=== PATIENT | male | born 1965 | race Caucasian/White ===

== ENCOUNTER → 2020-07-24 10:34 | Outpatient (BNVA) | payer OTHER, SELFPAY | PROVIDERS: Referring Provider Family Medicine; Visit Provider Anesthesiology Pain Medicine | DX: M25.551 Pain in right hip (principal); M25.552 Pain in left hip; M25.561 Pain in right knee; M25.562 Pain in left knee; M25.571 Pain in right ankle and joints of right foot; M25.572 Pain in left ankle and joints of left foot; Z79.891 Long term (current) use of opiate analgesic | CPT/HCPCS: 99205; 99215 ==

== ENCOUNTER → 2020-12-16 13:00 | Outpatient (BNVA) | payer OTHER, SELFPAY | PROVIDERS: PCP Family Medicine; Visit Provider Surgery | DX: K21.9 Gastro-esophageal reflux disease without esophagitis (principal); Z20.822 Contact with and (suspected) exposure to COVID-19 | CPT/HCPCS: 87635 ==

== ENCOUNTER → 2021-05-26 16:22 | Outpatient (BNVA) | payer OTHER, SELFPAY | PROVIDERS: PCP Family Medicine; Visit Provider Nurse Practitioner Family | DX: Z20.822 Contact with and (suspected) exposure to COVID-19 (principal) | CPT/HCPCS: 87635 ==

== ENCOUNTER → 2021-09-29 13:15 | Outpatient (BNVA) | payer OTHER, SELFPAY | PROVIDERS: PCP Family Medicine; Visit Provider Podiatrist Primary Podiatric Medicine | DX: Z01.812 Encounter for preprocedural laboratory examination (principal); Z20.822 Contact with and (suspected) exposure to COVID-19 | CPT/HCPCS: 87635 ==

== ENCOUNTER 2022-07-23 10:57 | Emergency (ER) | payer OTHER, SELFPAY ==
[2022-07-23 11:02] VITALS: BP 150/76; PULSE 76; RESP 16; TEMP 36.4; O2SAT 98; BMI 23.8
--- NOTE | 2022-07-23 11:36 | XRR_ITS ---
PROCEDURE INFORMATION: Exam: XR Left Finger(s) Exam date and time: 07/23/2022 11:57 AM Age: 56 years old Clinical indication: Blunt trauma/injury involving the left index finger. Smashed left index finger. Injury. TECHNIQUE: Imaging protocol: Radiologic exam of the Left fingers. Views: Minimum 2 views. COMPARISON: No relevant prior studies available. FINDINGS: Bones/joints: Probable subtle nondisplaced fracture involving the ulnar aspect of the distal tuft of the index finger. The scapholunate and lunotriquetral intervals are maintained. No chondrocalcinosis is seen. Soft tissues: Soft tissue swelling involving the index finger. XR/XR finger LT min 2V [id number] IMPRESSION: 1. Probable subtle nondisplaced fracture involving the ulnar aspect of the distal tuft of the index finger. 2. Soft tissue swelling involving the index finger.
--- NOTE | 2022-07-23 12:54 | ED_ITS ---
HPI - Extremity Problem General: Chief complaint: Extremity Injury, Upper Stated complaint: Left finger injury Time Seen by Provider: 07/23/22 12:00 History of Present Illness: Patient in today after smashing left index finger with a mallet yesterday. Patient reports that it busted the skin open he has some bruising. [facility] because [facility] did not [facility] they wanted him to be seen in the ER. Dates he has not had a tetanus vaccine in over 10 years Associated symptoms: Deny chest pain or fever(s) Review of Systems Const: Denies: fever(s) or chills Card: Denies: chest pain or palpitations Resp: Denies: dyspnea Musc: Reports: other (Left index finger pain status post smashing with a mallet yesterday) [facility] ED PFSH: Medical History Chronic hip pain Chronic pain of both knees GERD (gastroesophageal reflux disease) IBS (irritable bowel syndrome) Primary osteoarthritis Psychotic disorder with delusions due to known physiological condition PTSD (post-traumatic stress disorder) Type 2 diabetes mellitus Surgical History History of cholecystectomy Family History Grandfather No problems noted. Father Cancer Lung disease Stroke Mother Cancer Sister Hyperlipidemia Psychiatric illness Denies family history of Anesthesia complication Bleeding disorder Social History Smoking and tobacco status: current some day smoker Second hand smoke exposure: Yes Alcohol intake: never Physical Exam Const: COMMON NORMALS: no acute distress, patient oriented x3 and alert Resp: COMMON NORMALS: normal respiratory effort and No use of accessory muscles Extremity: NARRATIVE EXTREMITY EXAM: Left index finger has laceration on the palmar surface distal tip/finger pad that is well approximated. CSM within normal limits to finger. Two-point discrimination within normal limits. Flexion extension intact. There is some bruising to the distal tip finger pad. Neuro: COMMON NORMALS: patient oriented x3 SENSORIUM/ORIENTATION: Yes alert Course Vital Signs: Vital signs: Vital Signs Temperature 97.6 F 07/23/22 11:02 Pulse Rate 76 07/23/22 11:02 Respiratory Rate 16 07/23/22 11:02 Blood Pressure 150/76 07/23/22 11:02 Pulse Oximetry 98 07/23/22 11:02 Oxygen Delivery Me thod 07/23/22 11:02 MDM - Extremity (Nontraumatic) Medical Decision Making This is a 56-year-old male patient who is also diabetic. He smashed his index finger yesterday with a mallet. [facility] because they did not have x-ray capability. X-ray index finger 3 view wet read shows possible distal tuft nondisplaced fracture. Radiology read: Nondisplaced distal tuft fracture ulnar side index finger. We will place the patient in a finger splint. Update tetanus. Start patient on clindamycin antibiotic treating as if this were an open fracture given his chronic diabetes. Patient has numerous medication allergies however spouse says that he tolerates clindamycin well. Discussed conservative treatment at home. Follow-up with primary care provider to monitor healing and further care for the finger. Return to the ER as needed for new or worsening symptoms. Lab Data Radiology Impressions Finger X-Ray 07/23/22 11:36 IMPRESSION: 1. Probable subtle nondisplaced fracture involving the ulnar aspect of the distal tuft of the index finger. 2. Soft tissue swelling involving the index finger. Discharge Plan Discharge Patient Disposition: Home Clinical Impression: Closed fracture of tuft of distal phalanx of finger Condition: Stable Prescriptions: New clindamycin HCl 300 mg capsule 300 mg PO TID 7 Days Qty: 21 0RF No Action dicyclomine 10 mg capsule 10 mg PO TID empagliflozin 25 mg tablet 25 mg PO DAILY gabapentin 100 mg capsule 100 mg PO TID PRN glipizide 10 mg tablet 20 mg PO BID metformin 1,000 mg tablet 500 mg PO BID dulaglutide 0.75 mg/0.5 mL pen injector SUBCUT Rx Instructions: 0.75mg/0.5 ml sq weekly ascorbate calcium (vitamin C) 500 mg tablet 500 mg PO DAILY chromium picolinate 200 mcg tablet 200 mcg PO DAILY omeprazole 20 mg capsule,delayed release(DR/EC) 20 mg PO DAILY zinc 50 mg tablet 50 mg PO DAILY diphenhydramine HCl [Benadryl Allergy] 25 mg tablet 25 mg PO ONCE PRN tramadol 50 mg tablet 50 mg PO BID PRN (Reason: pain) Qty: 60 0RF cholecalciferol (vitamin D3) 10 mcg (400 unit) capsule 10 mcg PO DAILY Cinnomin PO magnesium gluconate 27 mg magnesium (500 mg) tablet 27 mg PO DAILY quercetin PO DAILY Discharge Orders: Discharge ED (Routine); Ordered 07/23/22 Ordered By: Carol Suggs Referrals: Indigo Jimenez MD [Primary Care Provider] - Discharge Diet: Usual diet Discharge Activity: Resume usual activity Patient Instructions: Finger Fracture (ED) Activity Restrictions/Additional Instructions: Keep splint in place. Follow-up with primary care provider for ongoing management of finger fracture. Keep wound clean and dry. Take antibiotics as directed. You may want to consider a probiotic while taking antibiotics. Your tetanus was updated today make sure that you let your primary care provider know so they can update this in your record. Return to the ER as needed for new or worsening symptoms. Coding Level of Care Code ED Die Cast Technician for Alg Fwd Exam Expanded Problem Focused
[2022-07-23] MEDS: tetanus-dipt-pertussis 0.5 mL SDV IM (13:13)
== END 2022-07-23 13:20 | disposition home or self-care (01) ==
PROVIDERS: Emergency Provider Nurse Practitioner Family; PCP Family Medicine
DX: S62.661A Nondisplaced fracture of distal phalanx of left index finger, initial encounter for closed fracture (principal); E11.9 Type 2 diabetes mellitus without complications; F17.210 Nicotine dependence, cigarettes, uncomplicated; Z79.84 Long term (current) use of oral hypoglycemic drugs; W20.8XXA Other cause of strike by thrown, projected or falling object, initial encounter; Z23 Encounter for immunization
CPT/HCPCS: 73140; 90471; 90715; 99283

== ENCOUNTER 2022-08-27 09:06 | Emergency (ER) | payer OTHER, SELFPAY ==
[2022-08-27 09:08] VITALS: BP 145/88; PULSE 75; RESP 18; TEMP 36.5; O2SAT 99; BMI 22.4
--- NOTE | 2022-08-27 09:34 | ED_ITS ---
HPI - Eye Problem General: Chief complaint: Eye Problems Stated complaint: right eye problem Time Seen by Provider: 08/27/22 09:08 History of Present Illness: 56-year-old male with some mild swelling to the left upper eyelid with some ecchymosis to the medial aspect. Patient denies any known injury. He noticed it started around 3 AM this morning with his eye just itching and watering. He denies any vision changes. He does not have any pain with eye movement. He has no pressure in the posterior aspect of his eye. Review of Systems General: Reports: 10 or more systems reviewed and unremarkable except in HPI and below Eyes: Reports: eye discomfort and other (Please see HPI); Denies: change in vision or blurry vision PFS ED PFSH: Medical History Chronic hip pain Chronic pain of both knees GERD (gastroesophageal reflux disease) IBS (irritable bowel syndrome) Primary osteoarthritis Psychotic disorder with delusions due to known physiological condition PTSD (post-traumatic stress disorder) Type 2 diabetes mellitus Surgical History History of cholecystectomy Family History Grandfather No problems noted. Father Cancer Lung disease Stroke Mother Cancer Sister Hyperlipidemia Psychiatric illness Denies family history of Anesthesia complication Bleeding disorder Social History Smoking and tobacco status: current some day smoker Second hand smoke exposure: Yes Alcohol intake: never Physical Exam Const: COMMON NORMALS: no acute distress and patient oriented x3 Eye: COMMON NORMALS: Equal, round and reactive pupils present and conjunctivae normal EYELID: eyelid abnormality right upper eyelid swelling, tenderness and other (Blepharitis with medial ecchymosis) CONJUNCTIVA: Yes conjunctivae normal SCLERA: sclerae normal CORNEA: Yes corneas normal and fluorescein used PUPIL: Yes Equal, round and reactive pupils present Resp: COMMON NORMALS: normal respiratory effort and No use of accessory muscles Cardio: COMMON NORMALS: regular rate and regular rhythm RATE: regular rate RHYTHM: regular rhythm Extremity: COMMON NORMALS: full ROM and capillary refill normal Neuro: COMMON NORMALS: patient oriented x3, moves all extremities, no focal motor deficits and no sensory deficits noted Psych: COMMON NORMALS: mental status grossly normal, Normal thought process present, cooperative and normal affect THOUGHT PROCESS: Normal thought process present Course Vital Signs: Vital signs: Vital Signs Temperature 97.7 F 08/27/22 09:08 Pulse Rate 75 08/27/22 09:08 Respiratory Rate 18 08/27/22 09:08 Blood Pressure 145/88 08/27/22 09:08 Pulse Oximetry 99 08/27/22 09:08 Oxygen Delivery Me thod 08/27/22 09:08 MDM - Eye Problem Medical Decision Making Patient with some increased watering of his eyes with some erythema to the right upper eyelid with ecchymosis. I suspect this is likely blepharitis. We will start him on antibiotic drops. Patient with negative fluorescein exam. Recommend he follow-up with us wad impregnator in couple days for recheck. Return turn as needed Discharge Plan Discharge Patient Disposition: Home Clinical Impression: Blepharitis of eyelid of right eye Condition: Stable Prescriptions: New Ocuflox 0.3 % drops See Rx Instructions .ROUTE .COMPLEX Qty: 10 0RF Rx Instructions: put 1-2 drps into affected eye(s) every 2-4 h x 2 days, then 1-2 drps 4 times/day days 3-7 No Action dicyclomine 10 mg capsule 10 mg PO TID empagliflozin 25 mg tablet 25 mg PO DAILY gabapentin 100 mg capsule 100 mg PO TID PRN glipizide 10 mg tablet 20 mg PO BID metformin 1,000 mg tablet 500 mg PO BID dulaglutide 0.75 mg/0.5 mL pen injector SUBCUT Rx Instructions: 0.75mg/0.5 ml sq weekly ascorbate calcium (vitamin C) 500 mg tablet 500 mg PO DAILY chromium picolinate 200 mcg tablet 200 mcg PO DAILY omeprazole 20 mg capsule,delayed release(DR/EC) 20 mg PO DAILY zinc 50 mg tablet 50 mg PO DAILY diphenhydramine HCl [Benadryl Allergy] 25 mg tablet 25 mg PO ONCE PRN tramadol 50 mg tablet 50 mg PO BID PRN (Reason: pain) Qty: 60 0RF cholecalciferol (vitamin D3) 10 mcg (400 unit) capsule 10 mcg PO DAILY Cinnomin PO magnesium gluconate 27 mg magnesium (500 mg) tablet 27 mg PO DAILY quercetin PO DAILY Discharge Orders: Discharge ED (Routine); Ordered 08/27/22 Ordered By: William Garrison Referrals: Indigo Jimenez MD [Primary Care Provider] - Discharge Diet: Advance as tolerated Discharge Activity: Resume usual activity Patient Instructions: Blepharitis (ED), Opioid Safety, Pain Management Activity Restrictions/Additional Instructions: Please follow-up with your wad impregnator in the next 1 to 2 days if possible for recheck of your symptoms Coding Level of Care Code ED Diesel Mechanic Farm for Chg Fwd Exam Detailed
[2022-08-27] MEDS: tetracaine 0.5% Op Soln 4 mL Btl 1 DROP EYE-RIGHT (09:36)
[2022-08-27] MEDS: fluorescein 1 mg Strip EYE-RIGHT (09:36)
== END 2022-08-27 09:48 | disposition home or self-care (01) ==
PROVIDERS: Emergency Provider Student in an Organized Health Care Education/Training Program; PCP Family Medicine
DX: H01.001 Unspecified blepharitis right upper eyelid (principal); Z79.84 Long term (current) use of oral hypoglycemic drugs; E11.9 Type 2 diabetes mellitus without complications; F17.210 Nicotine dependence, cigarettes, uncomplicated
CPT/HCPCS: 99283

== ENCOUNTER 2023-07-21 06:00 | Outpatient (RCR) | payer OTHER, SELFPAY | END 2023-08-17 23:59 | disposition home or self-care (01) | LOC: MPT 06:00 | PROVIDERS: Visit Provider Family Medicine | DX: R26.81 Unsteadiness on feet (principal); Z87.820 Personal history of traumatic brain injury | CPT/HCPCS: 97110; 97112; 97162 ==

== ENCOUNTER 2023-08-23 12:44 | Outpatient (CLI) | payer OTHER, SELFPAY ==
--- NOTE | 2023-08-23 12:53 | CT_ITS ---
WS: [id number] CT LUMBAR SPINE TECHNIQUE: Noncontrast CT of the lumbar spine with coronal and sagittal reformatted images. CLINICAL INFORMATION: VERTEBROGENIC LOW BACK PAIN COMPARISON: None. DLP: 291.[address] scans at [facility] use at least one of these dose optimization techniques: automated e xposure control; mA and/or kV adjustment per patient size (includes targeted exams where dose is matc hed to clinical indication); or iterative reconstruction. FINDINGS: Minimal lumbar curve. No acute compression. No high-grade central canal stenosis. Adrenal glands are normal. Exophytic LEFT renal cyst measuring 14 mm. L1-L2: Normal. L2-L3: Mild annular bulging. Mild facet arthropathy. Spinal canal and foramen are patent. L3-L4: Mild annular bulging with slight narrowing of the subarticular recess. Moderate facet arthropa thy. Spinal canal and foramen are patent. L4-L5: Mild annular bulging with slight effacement of the ventral thecal sac. Moderate facet arthropa thy. Spinal canal and foramen are patent. Mild narrowing of the subarticular recess bilaterally. L5-S1: Mild annular bulging. Slight effacement of ventral thecal sac. Spinal canal and foramen are pa tent. Moderate facet arthropathy. Hypertrophic changes sacroiliac joints. Visualized pelvic bony structures: Normal. Paravertebral soft tissues: Normal. IMPRESSION: 1. Minimal lumbar curve. No acute compression. No high-grade central canal stenosis. 2. Mild annular bulging L3-L4 and L4-L5 with slight narrowing of the subarticular recess bilaterally . 3. Moderate facet arthropathy L3-L4 L4-L5 and L5-S1. 4. No other acute findings.
--- NOTE | 2023-08-23 13:41 | XRR_ITS ---
PROCEDURE INFORMATION: Exam: XR Lumbosacral Spine Exam date and time: 08/23/2023 1:44 PM Age: 57 years old Clinical indication: Low back pain; Additional info: Vertebrogenic low back TECHNIQUE: Imaging protocol: Radiologic exam of the lumbosacral spine. 3image(s) are provided. Views: 2 or 3 views. COMPARISON: No previous plain film of the lumbar spine is currently available. FINDINGS: Bones/joints: Osseous alignment is maintained on the views including flexion and extension. No displaced fracture or dislocation is appreciated. There is some chronic multilevel degeneration including disc space narrowing for example at the lumbosacral junction with exuberant posterior element hypertrophy. There appear to be some spondylosis related changes. Soft tissues: No radiopaque foreign body or subcutaneous emphysema is appreciated. Lungs: No lobar consolidation is appreciated. Intraperitoneal space: There are abdominal level surgical clips demonstrated. Gastrointestinal tract: There are moderate stool related changes with the bowel-gas pattern appears nonobstructive overall. XR/XR lumbar spine f/e only [id number] IMPRESSION: Osseous alignment is maintained with no fracture or dislocation appreciated. There are chronic degenerative changes present including at the lumbosacral junction. Consider CT or MRI of the lumbar for further evaluation.
== END 2023-08-23 12:45 | disposition home or self-care (01) ==
LOC: RAD 12:45
PROVIDERS: Visit Provider Nurse Practitioner
DX: M47.817 Spondylosis without myelopathy or radiculopathy, lumbosacral region (principal); M51.36 Other intervertebral disc degeneration, lumbar region
CPT/HCPCS: 72120; 72131

== ENCOUNTER 2023-08-31 10:27 | Outpatient (RCR) | payer OTHER, SELFPAY | END 2023-09-16 23:59 | disposition home or self-care (01) | LOC: MPT 10:27 | PROVIDERS: Visit Provider Family Medicine | DX: R26.81 Unsteadiness on feet (principal) | CPT/HCPCS: 97110; 97112 ==

== ENCOUNTER 2023-09-02 10:11 | Emergency (ER) | payer OTHER, SELFPAY ==
[2023-09-02 10:49] VITALS: BP 115/72; PULSE 73; RESP 16; TEMP 36.6; O2SAT 99; BMI 23.4
--- NOTE | 2023-09-02 11:08 | XR_ITS ---
WS: [id number] Exam: XR ribs RT mn 3V w CXR1V [id number] Date/Time of Exam: 09/02/2023 11:38 AM Reason For Exam: right rib pain, kicked by a hog No acute RIGHT rib fracture noted. The lungs are bilaterally clear and fully inflated. Normal cardiom ediastinal silhouette. IMPRESSION: 1. Negative RIGHT rib study. 2. No acute cardiopulmonary process.
--- NOTE | 2023-09-02 11:18 | ED_ITS ---
HPI - General Adult General: Chief complaint: General Medical Stated complaint: [facility] Time Seen by Provider: 09/02/23 11:13 History of Present Illness: patient presents to the ER with complaints of being kicked in the right anterior lower rib area yesterday while working hogs. Patient says it hurts to twist to move take a big deep breath etc. Of his 's tramadol this morning because he is a smoker with a smoker's cough. Patient denies any shortness of b reath other than hurting to breathe. Review of Systems General: Reports: 10 or more systems reviewed and unremarkable except in HPI and below PFSH ED PFSH: Medical History Chronic hip pain Chronic pain of both knees GERD (gastroesophageal reflux disease) IBS (irritable bowel syndrome) Primary osteoarthritis Psychotic disorder with delusions due to known physiological condition PTSD (post-traumatic stress disorder) TBI (traumatic brain injury) Type 2 diabetes mellitus Surgical History History of cholecystectomy History of surgery Removal of sharpnel Family History Grandfather No problems noted. Father Cancer Lung disease Stroke Mother Cancer Sister Hyperlipidemia Psychiatric illness Denies family history of Anesthesia complication Bleeding disorder Social History Smoking and tobacco/nicotine status: current some day tobacco/nicotine user Second hand smoke exposure: Yes Alcohol intake: never Substance/Drug Use: never Physical Exam Const: COMMON NORMALS: no acute distress, average body habitus, patient oriented x3, no limitations, healthy appearing, alert and well nourished HENMT: COMMON NORMALS: normocephalic, atraumatic, hearing grossly normal bilaterally, external ears normal, Normal external nose present, moist oral mucous membranes and oropharynx normal HEAD & SCALP: normocephalic and atraumatic NOSE: Normal external nose present EXTERNAL EAR: Yes external ears normal Neck/C-Spine: COMMON NORMALS: no JVD Chest: COMMONS NORMALS: normal inspection of the chest; negative for normal palpation of entire chest wall ( Very tender to palpate in the lower right anterior costal cartilage) Resp: COMMON NORMALS: normal respiratory effort, No retractions, No use of accessory muscles and clear to auscultation bilaterally AUSCULTATION: clear to auscultation bilaterally Cardio: COMMON NORMALS: no JVD, regular rate, regular rhythm, S1 normal heart sound present, S2 normal heart sound present, No gallops present (Cardio), No clicks present (Cardio), No murmurs present (Cardio) and No rub (Cardio) RATE: regular rate RHYTHM: regular rhythm HEART SOUNDS: S1 normal heart sound present and S2 normal heart sound present GI: COMMON NORMALS: Normal to inspection, nondistended, normoactive bowel sounds present, Soft to palpation, non-tender, No hepatosplenomegaly present and no masses PALPATION: Yes Soft to palpation and Yes No hepatosplenomegaly present Neuro: COMMON NORMALS: patient oriented x3 SENSORIUM/ORIENTATION: Yes alert Course Vital Signs: Vital signs: Vital Signs Temperature 98 F 09/02/23 10:49 Pulse Rate 73 09/02/23 10:49 Respiratory Rate 16 09/02/23 10:49 Blood Pressure 115/72 09/02/23 10:49 Pulse Oximetry 99 09/02/23 10:49 MDM - General Adult Medical Decision Making patient had right rib chest x-rays with 1 view chest read by the radiologist as negative for fracture. Differential Diagnosis Rib contusion/rib fracture Medical Records I reviewed the patient's medical records. Lab Data I reviewed the patient's lab results. All radiology interpretation(s) finalized by discharge Discharge Plan Discharge Patient Disposition: Home Clinical Impression: Contusion of rib on right side Qualifiers: Encounter type: initial encounter Qualified Code(s): S20.211A - Contusion of right front wall of thorax, initial encounter Condition: Stable Prescriptions: No Action dicyclomine 10 mg capsule 10 mg PO TID empagliflozin 25 mg tablet 25 mg PO DAILY gabapentin 100 mg capsule 100 mg PO TID PRN glipizide 10 mg tablet 20 mg PO BID metformin 1,000 mg tablet 500 mg PO BID dulaglutide 0.75 mg/0.5 mL pen injector SUBCUT Rx Instructions: 0.75mg/0.5 ml sq weekly ascorbate calcium (vitamin C) 500 mg tablet 500 mg PO DAILY chromium picolinate 200 mcg tablet 200 mcg PO DAILY omeprazole 20 mg capsule,delayed release(DR/EC) 20 mg PO DAILY zinc 50 mg tablet 50 mg PO DAILY diphenhydramine HCl [Benadryl Allergy] 25 mg tablet 25 mg PO ONCE PRN tramadol 50 mg tablet 50 mg PO BID PRN (Reason: pain) Qty: 60 0RF cholecalciferol (vitamin D3) 10 mcg (400 unit) capsule 10 mcg PO DAILY Cinnomin PO magnesium gluconate 27 mg magnesium (500 mg) tablet 27 mg PO DAILY quercetin PO DAILY Ocuflox 0.3 % drops See Rx Instructions .ROUTE .COMPLEX Qty: 10 0RF Rx Instructions: put 1-2 drps into affected eye(s) every 2-4 h x 2 days, then 1-2 drps 4 times/day days 3-7 Discharge Orders: Discharge ED (Routine); Ordered 09/02/23 Ordered By: Javy Kohli Referrals: Indigo Jimenez MD [Primary Care Provider] - 1 week Patient Instructions: Rib Fracture (ED), Rib Contusion (ED) Activity Restrictions/Additional Instructions: Your rib series in the ER was read as negative for fracture by the radiologist. please take your tramadol as previously directed As needed. Please follow-up with family practice within the next 7 to 10 days as needed for further evaluation and treatment. Coding Level of Care Code ED Internet Security Specialist for Jacobo Latif
== END 2023-09-02 12:46 | disposition home or self-care (01) ==
PROVIDERS: Emergency Provider Emergency Medicine; PCP Family Medicine
DX: S20.211A Contusion of right front wall of thorax, initial encounter (principal); Z79.84 Long term (current) use of oral hypoglycemic drugs; Z72.0 Tobacco use; E11.9 Type 2 diabetes mellitus without complications; W55.42XA Struck by pig, initial encounter
CPT/HCPCS: 71101; 99283

== ENCOUNTER 2024-08-18 06:30 | Outpatient (RCR) | payer OTHER, SELFPAY | END 2024-09-16 23:59 | disposition home or self-care (01) | LOC: MST 06:30 | PROVIDERS: Visit Provider Family Medicine | DX: G31.84 Mild cognitive impairment of uncertain or unknown etiology (principal) | CPT/HCPCS: 92523 ==

== ENCOUNTER 2024-09-17 06:00 | Outpatient (RCR) | payer OTHER, SELFPAY | END 2024-10-17 23:59 | disposition home or self-care (01) | LOC: MST 06:00 | PROVIDERS: Visit Provider Family Medicine | DX: G31.84 Mild cognitive impairment of uncertain or unknown etiology (principal) | CPT/HCPCS: 92507 ==

== ENCOUNTER 2024-10-18 06:00 | Outpatient (RCR) | payer OTHER, SELFPAY | END 2024-11-17 23:59 | disposition home or self-care (01) | LOC: MST 06:00 | PROVIDERS: Visit Provider Family Medicine | DX: G31.84 Mild cognitive impairment of uncertain or unknown etiology (principal) | CPT/HCPCS: 92507 ==